=== PATIENT | male | born 1995 | race Caucasian/White ===

== ENCOUNTER → 2016-06-06 | Outpatient (CLI) | payer BC ==
--- NOTE | 2016-06-06 15:17 | RADRPT ---
PROCEDURE: XR Right hip and pelvis. CLINICAL INDICATION: Right hip pain. Pelvic pain. TECHNIQUE: Two views. Frontal pelvis and lateral right hip. COMPARISON: No prior studies are available for comparison. FINDINGS: There is no fracture or dislocation. The soft tissues are normal. The right hip is normal. The left hip is grossly normal. There is no lytic or blastic lesion. The upper pelvis is not completely included on the image. IMPRESSION: 1. Normal right hip. 2. Grossly normal appearance of the left hip and pelvis. RPTAT: QQ .Derrick Reeves MD, MD Date Time Electronically viewed and signed by .Derrick Reeves MD, MD on 06/06/2016 15:16 .R/
--- NOTE | 2016-06-06 21:59 | HKNOTE ---
DATE OF SERVICE: 06/06/2016 MAIN COMPLAINT: Pain in the right hip. HISTORY OF MAIN COMPLAINT: The patient is a 20-year-old male who complains of pain in his right hip . The pain started 1 week ago. It was sudden onset. The patient had quite a severe sore throat fo r a few days prior to the onset of this problem. He went to the [facility]. He was giv en amoxicillin. By the next day, the pain in his throat was virtually gone, but he now had quite se arleth pain his right "hip." The patient was seen yesterday by Dr. Zachariah Muñoz. Later in the day, he also went to the emergency room where x-rays were taken of his hip. He notes t hat the pain was at its most severe. He could "hardly walk." He went to emergency room in [facility] yesterday. He was given an injection for pain. PRESENT COMPLAINTS: The pain in the right hip is mainly localized to a point mid way between the luci mbar spine and the posterior limit of the iliac crest. The pain radiates down his leg continuously all the way down to his right ankle. He gets tingling and some numbness in the same distribution as the pain. His pain is described as being severe, occasionally aggravated by coughing, by weightbea ring, by walking, and by running. He does get rest pain and night pain. He has been taking [place] a nd ibuprofen, which helps somewhat. He has had trouble with his lower back in the past. He has not had any treatment for the back. He has never had an MRI scan of the lumbar spine. He does have numbness and tingling in his right leg. On a flat and level surface, he can walk 2 blocks at a time is he "pushes myself." The pain is inte rmittent. He can go no more than 50 steps before fatigue and pain set in. The patient states that he can get his hip to "crack" in certain positions. It hurts when it cracks. He is limping all the time. He uses a pair of crutches intermittently. The right leg feels longer than the left. He cannot clip his toenails or tie his shoelaces on the right side. He is currently wearing sandals. The patient was seen by his tacking machine operator, Dr. Burciaga in [place]. An MRI scan of the hip was obtained without contrast. The patient was also sent for lab work to be done. PAST ORTHOPEDIC HISTORY: PREVIOUS ORTHOPEDIC OPERATIONS: None. PRIOR CORTISONE INTAKE: None. ALCOHOL INTAKE: Once a week. OTHER JOINT PROBLEMS: The patient had left knee pain in high school playing basketball ([place]Schl atter disease). He never had any blood tests for arthritis. Yesterday, he had some blood tests per formed. PRIOR INJURIES TO HIPS OR KNEES: None. WORK STATUS: The patient is a student. PAST MEDICAL HISTORY: Negative. PAST SURGICAL HISTORY: Negative. ALLERGIES: NONE. MEDICATIONS: 1. Zoloft 100 mg once a day for anxiety. 2. Adderall 10 mg on occasion for ADHD. 3. Ibuprofen 800 mg q.4h. for pain. 4. [place] 5/325 q. ____ for pain. FAMILY HISTORY: Father age 52, alive and well. Mother age 40, alive and well. SYSTEMS REVIEW: Entirely negative. HABITS: The patient smokes a ____ for 30 minutes twice a week. He drinks 4 beers once a week. EDUCATION PROGRAM ASSOCIATE: Carlos Enrique Burciaga MD [id number], [address], [place] [address]. PHYSICAL EXAMINATION: GENERAL: The patient is obviously an extremely fit looking and youthful 20-year-old male. He is ob viously in pain, but he does as much as he can to downplay the pain. He walks without a walking aid . He has a marked antalgic gait. VITAL SIGNS: Height 6 feet 2 inches, weight 155 pounds, blood pressure 105/65, temperature 98.7. BACK: Dynamic pain assessment reveals a pain free range of motion in flexion, lateral flexion to th e left (limit of motion of lateral flexion reproduces pain in the right buttock), extension (hyperex tension reproduces pain in the right buttocks), lateral bending, and rotation. Inspection of the sp ine reveals no list. There is no lumbar paraspinal muscle spasm. The pelvis is level. Facet stres s test is negative bilaterally. Palpation of the spine demonstrates no tenderness of the spinous pr ocesses, facet joints, sacroiliac joint, sciatic notch, or posterior thigh. NEUROLOGIC: Motor examination reveals no muscle deficit in the lower extremities. Deep tendon refl exes in the lower extremities: Right knee jerk plus, left knee jerk plus, right ankle jerk plus, le ft ankle jerk plus. Straight leg raising is negative on the right at [address] raight leg raising on the left side at 70 degrees. Lasegue and ANNALISA tests are negative. RIGHT HIP: The hip has a full range of motion, but patient complains of pain roughly in the area of the right groin and thigh on forced external rotation and forced internal rotation. RIGHT KNEE: The right knee shows normal alignment. Active and passive extension is 0 degrees. Act benjamin and passive flexion is 135 degrees. The medial and lateral collateral ligaments and cruciate li gaments are intact. Earle test is negative. There is no effusion, tenderness, scarring, crepitus , or cysts. The patella tracks normally. There is no tenderness on the articular surface of the pa tella or in the patellar groove. The Q angle is normal. LEFT KNEE: The left knee shows normal alignment. Active and passive extension is 0 degrees. Activ e and passive flexion is 135 degrees. The medial and lateral collateral ligaments and cruciate liga ments are intact. Earle test is negative. There is no effusion, tenderness, scarring, crepitus, or cysts. The patella tracks normally. There is no tenderness on the articular surface of the maldonado lla or in the patellar groove. The Q angle is normal. IMAGING: Plain x-rays of his pelvis and hips obtained today show some mild irregularity of the outl ine of the right femoral head. Joint space is well maintained. No loose bodies are seen. MRI scan of the right hip obtained on 06/05/[address] Dameon Moreno, "moderate amou nt of fluid within the right hip joint. A filling defect seen within the joint space in the fluid a nteriorly and extending laterally. Unclear if it is evidence of loose body. It is also unclear if it is calcified. Clinical correlation and correlation with plain x-rays and CAT scan recommended. DISCUSSION: A 20-year-old healthy male, a sudden onset of pain his right "hip" approximately 1 wee k ago following a severe bout of his (possibly) strep throat. There is no history of injury to the hip. The pain has become progressively worse to a point where he has to use a pair of crutches. He is al so taking [place] for the pain. Examination shows a young man with marked antalgic gait. Examination shows crossed straight leg daigle sing response. He has a history of having had a sore throat before this problem started. The symptoms are predominantly those of a lumbar radiculopathy with pain radiating all the way down his leg to the foot with minimal pain in the groin. There was numbness and tingling in the right leg in the same distribution as the pain extending from the right buttocks all the way to the foot. These largely suggest that there is a problem with the lumbar spine. However, the MRI report and the actual images of the MRI reviewed. MRI is reported by Dr. Dameon velez on 06/05/2016 as showing possible loose body within the hip. Labwork performed on 06/05/2016 is entirely normal except for a slightly elevated sedimentation rate , which reads at 29 mm per hour, whereas the normal is referenced as 0 to 10 mm per hour. It is difficult to determine whether this patient's pain is coming from his hip or his back, but his mother was advised that it normally is. As an orthopedic surgeon I have never seen hip pain radiat es below the knee. This patient's pain, numbness, or tingling or radiates all the way down to his f oot. All the evidence seems to point to a spine etiology, but given the above findings, quite clearly we need to rule out the hip as a source of the problem. MANAGEMENT: Under sterile conditions, the patient was given injection of 5 mL 2% lidocaine into the right hip joint. This made absolutely no difference to his pain. 1. The patient is being sent for an MRI scan of the lumbar spine. 2. He is given a prescription for [place] for pain. 3. He will have the MRI performed tonight. 4. Since I am not 100% certain that my needle was in the patient's hip joint, will also schedule an aspiration of the right hip under fluoroscopy tomorrow. Fluid will be sent for cell count, culture , and sensitivity. Dictated By: ADAM JOHNSON/AIRAM Conf#: [id number] DID#: [id number]
== END | disposition home or self-care (01) ==
LOC: HKI 14:04
DX: M25.551 Pain in right hip (principal)
CPT/HCPCS: 73502; G0463